=== PATIENT | female | born 1990 | race Caucasian/White ===

== ENCOUNTER 2018-10-28 10:13 | Day surgery (SDC) | payer OTHER ==
[2018-10-27 18:53] VITALS: BMI 22.4
[~2018-10-28] VITALS: Ht 170.2 cm; Wt 63.2 kg
[2018-10-28] VITALS (12 sets, daily range): BP systolic 88–132; BP diastolic 51–72; PULSE 52–80; RESP 16–31; Ht 170.2 cm; Wt 63.2 kg
[~2018-10-28 10:13] MED LIST: CEFAZOLIN 2 GM/50 ML (PMX) 50 ML IVPB SCH
[2018-10-28] MEDS ORDERED: HYDROmorphONE 1 MG/5 ML IV SYRINGE IV PRN ×3 (12:00)
[2018-10-28] MEDS ORDERED: BUPIVACAINE 0.25% (MPF) 30 ML INJ ONE (12:00)
[2018-10-28] MEDS ORDERED: OXYCODONE/ACETAMINOPHEN (5/325) TAB PO PRN ×2 (12:00)
[2018-10-28] MEDS ORDERED: POLYMYXIN/BACITRACIN 1L IRRIG ONE (12:00)
[2018-10-28] MEDS ORDERED: MEPERIDINE 25 MG INJ IV PRN (12:00)
[2018-10-28] MEDS ORDERED: FENTAnyl 50 MCG/ML VIAL IV PRN ×3 (12:00)
[2018-10-28] MEDS ORDERED: DIPHENHYDRAMINE 50 MG INJ IV PRN (12:00)
[2018-10-28] MEDS ORDERED: ONDANSETRON 4 MG INJ IV PRN (12:00)
[2018-10-28] MEDS ORDERED: KETOROLAC 30 MG INJ IV PRN (12:00)
--- NOTE | 2018-10-28 12:00 | PREAC ---
Date/Time of Note Date/Time of Note DATE: 10/28/18 TIME: 11:59 Anesthesia Eval and Record Evaluation Time Pre-Procedure Interview DATE: 10/28/18 TIME: 11:59 Age 28 Sex female NPO: 8 hrs Preoperative diagnosis ventral hernia Planned procedure lap ventral hernia repair Past Medical History Past Medical History: Includes Heme: Thrombocytopenia Surgery & Anesthesia Issues No known issue Meds Anticoagulation: No Beta Janae within 24 hr: No Reason Beta Janea not given: Pt. not on B-Janae No Active Prescriptions or Reported Meds Current Medications Cefazolin Sodium/ Dextrose 50 ml @ 100 mls/hr PRE-OP IVPB ; Start 10/28/18 at 06:00; Stop 10/28/18 at 15:00 Meds reviewed: Yes Allergies Coded Allergies: shrimp (Verified Allergy, Unknown, RASH HIVES, 10/28/18) acetaminophen (Verified Adverse Reaction, Unknown, VOMITING NAUSEA, 10/28/18) hydrocodone (Verified Adverse Reaction, Unknown, VOMITING NAUSEA, 10/28/18) Allergies Reviewed: Yes Labs/Studies Labs Reviewed: Reviewed by anesthesiologist test: Negative Studies: ECG (n/a), CXR (n/a) Pre-procedure Exam Last vitals Vital Signs Date Temp Pulse Resp B/P (MAP) Pulse Ox O2 O2 Flow FiO2 Time Delivery Rate 10/28/18 97.7 53 16 125/72 100 11:53 (89) Airway: Adequate mouth opening Mallampati: Mallampati I Teeth: Normal Lung: Normal Heart: Normal ASA Physical Status ASA physical status: 2 Emergency: None Planned Anesthetic General/MAC: ETT Nerve block: TAP (bilateral) Planned Pain Management Single shot nerve block, Parenteral pain med Pre-operative Attestations Prior to commencing anesthesia and surgery, the patient was re-evaluated, there was verification of: *The patient's identity *The results of appropriate recent lab work and preoperative vital signs *The above evaluation not changing prior to induction *Anesthetic plan, risk benefits, alternative and complications discussed with patient/family; questions answered; patient/family understands, accepts and wis hes to proceed. VENKATA CORLEY MD Oct 28, 2018 12:00
[2018-10-28] MEDS ORDERED: ROPIVACAINE 0.5 % 30 ML VIAL ONE (12:06)
[2018-10-28] MEDS ORDERED: PROPOFOL 20 ML ONE (12:06)
[2018-10-28] MEDS ORDERED: ROCURONIUM 50 MG INJ ONE (12:25)
[2018-10-28] MEDS ORDERED: KETOROLAC 30 MG INJ ONE (12:25)
[2018-10-28] MEDS ORDERED: METOCLOPRAMIDE 10 MG INJ ONE (12:25)
[2018-10-28] MEDS ORDERED: GLYCOPYRROLATE 0.4 MG INJ ONE (12:25)
[2018-10-28] MEDS ORDERED: NEOSTIGMINE 3 MG/3 ML SYRINGE ONE (12:25)
[2018-10-28] MEDS ORDERED: ONDANSETRON 4 MG INJ ONE (12:25)
[2018-10-28] MEDS ORDERED: CEFAZOLIN 1 GM INJ ONE (12:25)
[2018-10-28] MEDS ORDERED: IBUPROFEN 800 MG TAB PO ONE (13:00)
--- NOTE | 2018-10-28 13:04 | OPR ---
Date/Time of Note Date/Time of Note DATE: 10/28/18 TIME: 13:02 Operative Report Procedure Date: Oct 28, 2018 Preoperative Diagnosis incarcerated ventral hernia Postoperative Diagnosis same Operation/Procedure Performed 1. laparoscopic ventral hernia repair 2. implantation of bardsoft 15 x 15 cm mesh Surgeon see signature line Hand Former Helper none Anesthesia Type: general Estimated Blood Loss: 0 - 10 ml's Transfusion none Specimen none Grafts/Implants none Complications none Pt Condition Post Procedure: stable Indications This is a 28-year-old female with symptomatic incarcerated hernia. She required surgical repair. Risks alternatives benefits and personally discussed the patient. Patient expressed understanding consents to the operation. Procedure Description Patient is taken to the OR and prepped and draped in usual sterile fashion. Surgical time was performed. IV antibiotics were given. Left upper quadrant 5 mm transverse incision with a 15 blade. Using a 5 mm optical trocar optical entry performed. Pneumoperitoneum is established. Left flank 12 mm optical trochars placed under direct physician. Left lower quadrant 5 mm optical trochars were placed in direct position. Upon initial inspection there is incarcerated contents to the ventral hernia. Lap scopic lysis of adhesions performed with lap scopic harmonic to lyse the adhesions and reduce the contents. Ivy PAYTON Oct 28, 2018 13:04
== END 2018-10-28 16:13 | disposition home or self-care (01) ==
LOC: SDS 10:13
PROVIDERS: ATTEND Surgery
DX: K43.9 Ventral hernia without obstruction or gangrene (principal)
CPT/HCPCS: 49653; J0690; J1885; J2405; J2710; J2765; J2795; J3010; Z7610